=== PATIENT | female | born 2000 | race Caucasian/White ===

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

== ENCOUNTER 2021-11-02 09:30 | Emergency (ER) | payer BC ==
[2021-11-02] MEDS ORDERED: Fluorescein Opthalmic Strip ONE (10:02)
[2021-11-02] MEDS ORDERED: Tetracaine 0.5% PF 4 ML BOT ONE (10:02)
== END 2021-11-02 10:25 | disposition home or self-care (01) ==
LOC: MADERS 09:30
DX: H00.013 Hordeolum externum right eye, unspecified eyelid (principal); H10.9 Unspecified conjunctivitis
CPT/HCPCS: 99283

== ENCOUNTER 2022-04-21 01:13 | Emergency (ER) | payer BC ==
[2022-04-21] MEDS ORDERED: Fluorescein Opthalmic Strip ONE (01:45)
[2022-04-21] MEDS ORDERED: Proparacaine 0.5% Opth 15 ML BOT ONE (01:45)
[2022-04-21] MEDS ORDERED: Tobramycin Sulfate 0.3% Ophth Susp 5 ml Bottle ONE (02:04)
[2022-04-21] MEDS ORDERED: traMADol HCl 50 MG TAB ONE (02:13)
== END 2022-04-21 02:21 | disposition home or self-care (01) ==
LOC: MADERS 01:13
DX: S05.01XA Injury of conjunctiva and corneal abrasion without foreign body, right eye, initial encounter (principal)
CPT/HCPCS: 99283